=== PATIENT | female | born 2000 | race Caucasian/White ===

== ENCOUNTER 2020-04-11 14:15 | Outpatient (CLI) | payer MEDICAID, SELFPAY ==
[2020-04-11 14:30] VITALS: BP 130/87; PULSE 98
[2020-04-11 14:32] VITALS: RESP 16; TEMP 37.2
[2020-04-11 14:46] VITALS: BP 125/90; PULSE 94
[2020-04-11 14:47] VITALS: BMI 25.3
[2020-04-11 15:01] VITALS: BP 132/86; PULSE 96
[2020-04-11 15:15] VITALS: RESP 17
[2020-04-11 15:16] VITALS: PULSE 83
[2020-04-11 15:24] LABS: Total Volume, Urine 2100 mL
[2020-04-11 15:55] LABS: Total Protein 24 Hour Urine 157.5 mg/24HR (0-150); Urine Total Protein 24 Hour 7.5 mg/dL (0-150)
== END 2020-04-11 15:20 | disposition home or self-care (01) ==
LOC: OPOB 14:21 → OBGYN 14:28
PROVIDERS: Family Provider Nurse Practitioner Family; PCP Nurse Practitioner Family; Visit Provider Family Medicine
DX: O16.9 Unspecified maternal hypertension, unspecified trimester (principal); Z3A.00 Weeks of gestation of pregnancy not specified
CPT/HCPCS: 59025; 84156; 99211

== ENCOUNTER 2020-04-17 15:22 | Outpatient (CLI) | payer MEDICAID, SELFPAY ==
[2020-04-17 15:47] VITALS: BP 131/83; PULSE 116
[2020-04-17 15:56] VITALS: RESP 16
[2020-04-17 15:58] VITALS: BMI 25.7
[2020-04-17 16:02] VITALS: BP 131/86; PULSE 116
[2020-04-17 16:17] VITALS: BP 128/79; PULSE 99
[2020-05-03 08:40] LABS: Nitrazine Paper, PH Negative
== END 2020-04-17 16:25 | disposition home or self-care (01) ==
LOC: OPOB 15:25 → OBGYN 15:25
PROVIDERS: Family Provider Nurse Practitioner Family; PCP Nurse Practitioner Family; Visit Provider Family Medicine
DX: O26.899 Other specified pregnancy related conditions, unspecified trimester (principal); Z3A.00 Weeks of gestation of pregnancy not specified; N89.8 Other specified noninflammatory disorders of vagina
CPT/HCPCS: 59025; 83986; 99211

== ENCOUNTER 2020-05-05 09:46 | Inpatient (IN) | payer MEDICAID, SELFPAY ==
[2020-05-05] VITALS (52 sets, daily range): BP systolic 120–174; BP diastolic 74–99; PULSE 86–141; RESP 16; TEMP 36.4–37.8; BMI 25.5
[2020-05-05] MEDS: lactated ringers 1,000 ML 999 ML IV (10:08)
[2020-05-05 10:47] LABS: Basophils % 0.2 %; Eosinophils % 0.1 %; Lymphocytes # 2.2 10^3/uL (0.8-4.8); Lymphocytes % 13.2 %; Mean Corpuscular HGB Conc 32.4 g/dL (30.0-36.0); Mean Corpuscular Hemoglobin 27.2 pg (28.0-34.0); Mean Platelet Volume 11.1 fL (7.4-10.4); Monocytes # 0.9 10^3/uL (0.2-0.9); Monocytes % 5.3 %; Neutrophils # 13.32 10^3/uL (1.8-7.7); Neutrophils % 80.5 %; Nucleated Red Blood Cells % 0 %; Platelet Count 293 10^3/cmm (130-400); Red Blood Count 4.05 10^6/uL (4.1-5.3); Red Cell Distribution Width 12.4 % (12.1-15.1); White Blood Count 16.6 10^3/uL (4.0-10.0)
[2020-05-05] MEDS: dextrose 5%-lactated ringers 1,000 ML 125 ML IV (11:00)
--- NOTE | 2020-05-05 12:33 | P.ANESASSM_ITS ---
Pre-Anesthetic Assessment Pre-Anesthetic Assessment: Height/Weight: Height 1.7 m Temp Pulse BP 97.5 F L 90 129/86 05/05/20 11:21 05/05/20 12:21 05/05/20 12:21 Was Beta Ivan taken within 24 hours: N/A Social: Social History: No alcohol and No tobacco Exam: Pre-Anes Outpt Exam: alert, oriented x 3, clear to auscultation bilaterally and regular rate & rhythm Airway: Submandibular: WNL Cervical ROM: WNL MP: 2 Dentition: Full History/ROS: No significant history except as noted Anesthetic Plan: ASA status: 2 Anesthesia: Regional (specify below) (Labor epidural) Risk of > 500 ml blood loss (7ml/kg in children): No Meds/Allergies Current Medications: Current Medications Generic Name Dose Route Start Last Admin Trade Name Freq PRN Reason Stop Dose Admin Lactated Ringer's 1,000 mls @ 999 m ls/hr 05/05/20 09:52 05/05/20 10:08 Lactated Ringers IV 999 mls/hr .Q1H1M PRN Administration BLEEDING Dextrose/Lactated Ringer's 1,000 mls @ 125 m ls/hr 05/05/20 10:00 05/05/20 11:00 Dextrose 5%-Lact ated Ringers IV 125 mls/hr .Q8H MESHA Administration Ropivacaine 200 mg in 100 mls @ 13 mls/hr 05/05/20 10:00 05/05/20 11:00 Naropin Premix EPIDURAL 13 mls/hr .Q7H42M MESHA Administration Data Anesthesia CBC & Chem 7: 05/05/20 09:30 Other Labs: Laboratory Results - last 48 hr 05/05/20 09:30 WBC 16.6 H RBC 4.05 L Hgb 11.0 L Hct 34.0 L MCV 84.0 MCH 27.2 L MCHC 32.4 RDW 12.4 Plt Count 293 MPV 11.1 H Neut % (Auto) 80.5 Lymph % (Auto) 13.2 [place] % (Auto) 5.3 Eos % (Auto) 0.1 Baso % (Auto) 0.2 Neut # (Auto) 13.32 H Lymph # (Auto) 2.2 [place] # (Auto) 0.9 Eos # (Auto) 0.0 Baso # (Auto) 0.0 Nucleated RBC % (auto) 0 Nucleated RBCs # 0.0 Cardiac Studies: No Data to Display
--- NOTE | 2020-05-05 12:34 | ANES.PROC ---
Anesthesia Procedures Procedure/Date: 05/05/20 Epidural: Time Out Performed: Yes Consents Signed: Procedure Consent Consent: requested by attending/covering physician, from patient and risks and benefits reviewed Lumbar Level: L3-L4 Epidural position: sitting Epidural procedure: sterile prep of area, 1% lidocaine to numb the area, 18 g needle, neg for paresthesia, test dose given, 1.5% xylocaine 1:200k epi, placed PCEA, no systemic response, sterile dressing applied and 0.2% Ropiavacaine @ mls/hr (13) Additional Comments: RADHA at 4 cm cath at 9 cm.
--- NOTE | 2020-05-05 13:05 | PC.NURSE ---
Patient hurting on the left side, position techniques attempted with no relief. Anaesthesia notified at time and coming to assess epidural.
--- NOTE | 2020-05-05 13:47 | PM.MISC ---
Miscellaneous Note Purpose of Documentation: Epidural Bolus Note: Epidural bolused; 100mcg fent and 5mls 0.25% bup
[2020-05-05] MEDS: oxytocin 30 UNIT/500 ML BAG 999 UNIT IV (14:50)
--- NOTE | 2020-05-05 15:23 | PM.DELIVERY ---
Delivery Note: Date of delivery: May 05, 2020 Pre-Delivery Course: The mother had routine care at [facility]. There were no complications during the . Delivery: This is a 19-year-old G1, P0 at 40 weeks 3 days gestation who was admitted in active labor. Her labor progressed well on its own and she had spontaneous rupture of membranes with thick meconium. She received an epidural for pain management. She had a normal spontaneous vaginal delivery of a viable male weight 8 pounds 13 ounces, 3990 g, Apgars 8 and 9. She delivered over an intact perineum but had 1/3 degree laceration. The was suctioned at delivery and placed on the mother's chest. The cord was clamped and cut. Cord blood was obtained. The placenta was delivered grossly intact and normal to inspection. The third degree laceration was repaired using 3-0 Vicryl in an interrupted fashion. The second-degree laceration was then repaired using 3-0 chromic in a running fashion. Mother and infant were doing well after delivery. EBL 275 mL A&P Assessment and plan (1) Normal spontaneous vaginal delivery: Routine care Status: Acute (2) Third degree perineal laceration during delivery with more than 50% tear of external anal sphincter: Status: Acute Coding Level of Care Code Acute Bulb Weeder for Sepidehg Fwd Diagnoses Normal spontaneous vaginal delivery O80 Third degree perineal laceration during delivery with more than 50% tear of external anal sphincter O70.22
[2020-05-05] MEDS: benzocaine-menthol 78 gm Canister 1 SPRAY TOPICAL (17:40)
[2020-05-05] MEDS: docusate sodium 100 mg Capsule PO (17:40)
[2020-05-05] MEDS: lanolin oint 7 gm 1 APPLIC TOPICAL (17:40)
[2020-05-05] MEDS: ibuprofen 800 mg tablet PO (20:46)
[2020-05-05] MEDS: acetaminophen 325 mg Tablet 650 MG PO (21:17)
[2020-05-06 00:40] VITALS: BP 133/87; PULSE 101
[2020-05-06 05:10] VITALS: BP 124/87; PULSE 96
[2020-05-06 05:33] LABS: Hematocrit 26.1 % (37.0-47.0); Hemoglobin 8.3 g/dL (11.5-15.3); Mean Corpuscular HGB Conc 31.8 g/dL (30.0-36.0); Mean Corpuscular Hemoglobin 26.9 pg (28.0-34.0); Mean Corpuscular Volume 84.7 fL (81-99); Mean Platelet Volume 10.7 fL (7.4-10.4); Platelet Count 215 10^3/cmm (130-400); Red Blood Count 3.08 10^6/uL (4.1-5.3); Red Cell Distribution Width 12.5 % (12.1-15.1); White Blood Count 12.9 10^3/uL (4.0-10.0)
[2020-05-06] MEDS: acetaminophen 325 mg Tablet 650 MG PO (06:25)
[2020-05-06] MEDS: ibuprofen 800 mg tablet PO ×2 (08:18→14:03)
[2020-05-06] MEDS: prenatal vitamin Capsule 1 CAP PO (08:18)
[2020-05-06] MEDS: docusate sodium 100 mg Capsule PO (08:18)
[2020-05-06 09:09] VITALS: BP 140/79; PULSE 90; TEMP 37.3
--- NOTE | 2020-05-06 12:56 | P.DS_ITS ---
Discharge Providers CERTIFIED WELLNESS PROGRAM COORDINATOR Date of Admission: 05/05/20 09:46 Date of Discharge: 05/06/20 Attending Provider at Admission: Yakelin Templeton MD Attending Provider at Discharge: Yakelin Templeton MD Primary Care Provider: Zaynab Vick NP Diagnoses at Discharge Discharge Diagnosis (1) Normal spontaneous vaginal delivery: Status: Acute (2) Third degree perineal laceration during delivery with more than 50% tear of external anal sphincter: Status: Acute Reason for Visit Reason for Visit: Contractions Hospital Course Hospital Course This is a 19-year-old now status post normal spontaneous vaginal delivery of a 40-week gestation male . There were no complications of the labor or delivery. Mother did have a third-degree perineal laceration. After delivery mother and infant did well. Mother was ambulating, tolerating a regular diet, had decreased vaginal bleeding and was comfortable with discharge home. Physical Exam Const: COMMON NORMALS: no acute distress GENERAL APPEARANCE: cooperative HENMT: COMMON NORMALS: normocephalic HEAD & SCALP: normocephalic FACE & SINUS: normal facial exam Eye: COMMON NORMALS: Equal, round and reactive pupils present and EOMs intact bilaterally PUPIL: Yes Equal, round and reactive pupils present Chest: COMMONS NORMALS: normal inspection of the chest Resp: COMMON NORMALS: normal respiratory effort and clear to auscultation bilaterally EFFORT & INSPECTION: Yes able to speak in complete sentences AUSCULTATION: clear to auscultation bilaterally Cardio: COMMON NORMALS: regular rate and regular rhythm RATE: regular rate RHYTHM: regular rhythm GI: COMMON NORMALS: Soft to palpation (Fundus firm U- 2), non-tender and no masses PALPATION: Yes Soft to palpation (Fundus firm U- 2) Extremity: GENERAL: No calf tenderness and Yes edema (Nonpitting) Urinary Catheter Management^: Vazquez: Cath Placed During This Visit: yes, but has since been removed by the nurse Reason for Continuing Indwelling Catheter: Decision to DC Catheter Urinary Catheter Date of Insertion: 05/05/20 Urinary Catheter Time of Insertion: 11:42 Date Urinary Catheter Removed: 05/05/20 Time Urinary Catheter Discontinued: 14:31 Discharge Data Data Completed and Pending: Labs from last 24 hours 05/06/20 05:10 WBC 12.9 H RBC 3.08 L Hgb 8.3 L Hct 26.1 L MCV 84.7 MCH 26.9 L MCHC 31.8 RDW 12.5 Plt Count 215 MPV 10.7 H Vitals: Last Vital Signs Temp 99.1 F 05/06/20 09:09 Pulse 90 05/06/20 09:09 Resp 16 05/05/20 19:41 BP 140/79 05/06/20 09:09 Discharge Plan Discharge Patient Disposition: Home Condition: Stable Prescriptions: New docusate sodium [DOK] 100 mg Capsule 100 mg PO BID Qty: 60 RF: 0 No Action Vitamin Tablet 1 tab PO DAILY RF: 0 Discharge Orders: Discharge Order (Routine); Ordered 05/06/20 Ordered By: Yakelin Templeton Referrals: Yakelin Templeton MD [Physician] - 1 month Discharge Diet: Usual diet Discharge Activity: Limit activity as instructed Patient Instructions: Your Baby (GEN), How to Hold and Breastfeed Your Baby (DC), and Nipple Soreness (GEN), Breast Fullness Versus Breast Engorgement (GEN), and Plugged Ducts (GEN), How to Increase Your Milk Supply (GEN), How to Tell if Your Baby is Getting Enough Breast Milk (GEN), and Your Diet (GEN), Vaginal Delivery (DC), OB Discharge Report, OB Food/Drug Interaction Guide, Abnormal Bleeding, Depression Discharge Attestations CERTIFIED WELLNESS PROGRAM COORDINATOR Time Spent in Discharge Care*: less than 30 min Coding Level of Care Code Acute Oxidation Engineer for Chg Fwd Diagnoses Normal spontaneous vaginal delivery O80 Third degree perineal laceration during delivery with more than 50% tear of external anal sphincter O70.22
[2020-05-06 16:23] VITALS: TEMP 36.5
[2020-05-06 16:24] VITALS: BP 138/86; PULSE 95
[2020-05-06 16:25] VITALS: RESP 17
== END 2020-05-06 16:48 | disposition home or self-care (01) | DRG 768 ==
LOC: OPOB 09:48 → OBGYN 09:48
PROVIDERS: Admitting Provider Family Medicine; Family Provider Nurse Practitioner Family; PCP Nurse Practitioner Family; Visit Provider Family Medicine
DX: O48.0 Post-term pregnancy (principal); Z37.0 Single live birth; O70.22 Third degree perineal laceration during delivery, IIIb; O77.0 Labor and delivery complicated by meconium in amniotic fluid; Z3A.40 40 weeks gestation of pregnancy
CPT/HCPCS: 36415; 51702; 59025; 59409; 85025; 85027; 99211; J2795; J3010; J3490

== ENCOUNTER → 2024-05-18 11:00 | Outpatient (BNVA) | payer BC, MEDICAID, SELFPAY | PROVIDERS: Family Provider Nurse Practitioner Family; PCP Nurse Practitioner Family; Visit Provider Family Medicine | DX: Z01.419 Encounter for gynecological examination (general) (routine) without abnormal findings (principal) | CPT/HCPCS: 88175 ==

== ENCOUNTER → 2024-12-28 10:41 | Outpatient (BNVA) | payer BC, MEDICAID, SELFPAY | PROVIDERS: Family Provider Nurse Practitioner Family; PCP Nurse Practitioner Family; Visit Provider Nurse Practitioner Family | DX: N91.2 Amenorrhea, unspecified (principal) | CPT/HCPCS: 81025 ==

== ENCOUNTER → 2025-01-03 08:55 | Outpatient (BNVA) | payer BC, MEDICAID, SELFPAY | PROVIDERS: Family Provider Nurse Practitioner Family; PCP Nurse Practitioner Family; Visit Provider Nurse Practitioner Family | DX: N91.2 Amenorrhea, unspecified (principal) | CPT/HCPCS: 81025 ==

== ENCOUNTER → 2025-01-25 13:04 | Outpatient (BNVA) | payer BC, SELFPAY | PROVIDERS: Family Provider Nurse Practitioner Family; PCP Nurse Practitioner Family; Visit Provider Nurse Practitioner Women's Health | DX: Z34.90 Encounter for supervision of normal pregnancy, unspecified, unspecified trimester (principal) | CPT/HCPCS: 80307; 84315; 85025; 86592; 86762; 86803; 86850; 86900; 87086; 87340; 87806 ==

== ENCOUNTER → 2025-02-03 10:25 | Outpatient (BNVA) | payer BC, SELFPAY | PROVIDERS: Family Provider Nurse Practitioner Family; PCP Nurse Practitioner Family; Visit Provider Obstetrics & Gynecology | DX: Z34.90 Encounter for supervision of normal pregnancy, unspecified, unspecified trimester (principal) | CPT/HCPCS: 84315; 87491; 87591; 87624; 87661 ==